=== PATIENT | female | born 1990 | race Two or more races ===

== ENCOUNTER 2017-08-15 00:47 | Outpatient (CLI) | payer OTHER | END 2017-08-15 10:56 | disposition home or self-care (01) | LOC: OBS/DEL 00:47 | DX: O26.892 Other specified pregnancy related conditions, second trimester (principal); Z04.3 Encounter for examination and observation following other accident; Z34.82 Encounter for supervision of other normal pregnancy, second trimester; W18.39XA Other fall on same level, initial encounter; Y93.89 Activity, other specified; Y92.89 Other specified places as the place of occurrence of the external cause; Y99.8 Other external cause status ==

== ENCOUNTER 2017-10-16 14:11 | Outpatient (CLI) | payer OTHER ==
[2017-10-16] MEDS ORDERED: PRENATAL 19 TA1 EACH PO (14:39)
== END 2017-10-17 11:36 | disposition home or self-care (01) ==
LOC: OBS/DEL 14:11
DX: O26.893 Other specified pregnancy related conditions, third trimester (principal); Z04.1 Encounter for examination and observation following transport accident; Z34.03 Encounter for supervision of normal first pregnancy, third trimester; O60.03 Preterm labor without delivery, third trimester; V49.88XA Car occupant (driver) (passenger) injured in other specified transport accidents, initial encounter; Y93.89 Activity, other specified; Y92.488 Other paved roadways as the place of occurrence of the external cause; Y99.8 Other external cause status

== ENCOUNTER 2017-10-20 17:23 | Emergency (ER) | payer OTHER ==
[~2017-10-20] VITALS: Ht 160 cm; Wt 85.7 kg
== END 2017-10-20 20:26 | disposition home or self-care (01) ==
LOC: ER 17:23
DX: O26.893 Other specified pregnancy related conditions, third trimester (principal); S92.491A Other fracture of right great toe, initial encounter for closed fracture; V49.88XA Car occupant (driver) (passenger) injured in other specified transport accidents, initial encounter; Y93.89 Activity, other specified; Y92.488 Other paved roadways as the place of occurrence of the external cause; Y99.8 Other external cause status

== ENCOUNTER → 2017-10-20 | Outpatient (CLI) | payer OTHER ==
[~2017-10-20] MED LIST: PRENATAL 19 TA1 EACH PO
== END | disposition home or self-care (01) ==
LOC: NST 14:48
DX: Z34.03 Encounter for supervision of normal first pregnancy, third trimester (principal)

== ENCOUNTER → 2017-11-16 | Outpatient (CLI) | payer OTHER | END | disposition home or self-care (01) | LOC: NST 14:46 | DX: Z34.03 Encounter for supervision of normal first pregnancy, third trimester (principal) ==

== ENCOUNTER 2017-11-23 13:14 | Outpatient (CLI) | payer OTHER | END 2017-11-23 13:56 | disposition home or self-care (01) | LOC: NST 13:14 | DX: Z34.03 Encounter for supervision of normal first pregnancy, third trimester (principal) ==

== ENCOUNTER 2017-11-27 18:25 | Inpatient (IN) | payer OTHER ==
[~2017-11-27] VITALS: Ht 160 cm; Wt 95.3 kg
== END 2017-11-30 14:27 | disposition home or self-care (01) | DRG 766 ==
LOC: OB/GYN 18:25 → LDR 18:25 → OB/GYN 23:18
PROVIDERS: Obstetrics & Gynecology Maternal & Fetal Medicine
PROC: 4A1HXCZ Monitoring of Products of Conception, Cardiac Rate, External Approach (ICD-10-PCS; 2017-11-27)
PROC: 4A033R1 Measurement of Arterial Saturation, Peripheral, Percutaneous Approach (ICD-10-PCS; 2017-11-27)
PROC: 10D00Z1 Extraction of Products of Conception, Low, Open Approach (ICD-10-PCS; principal; 2017-11-27 18:00)
DX: O36.5930 Maternal care for other known or suspected poor fetal growth, third trimester, not applicable or unspecified (principal); O42.02 Full-term premature rupture of membranes, onset of labor within 24 hours of rupture; O32.1XX0 Maternal care for breech presentation, not applicable or unspecified; Z3A.37 37 weeks gestation of pregnancy; Z37.0 Single live birth